=== PATIENT | female | born 1935 | race Caucasian/White ===

== ENCOUNTER 2022-03-04 11:43 | Emergency (ER) | payer MEDICARE ==
[2022-03-04 12:22] LABS: HEMOGLOBIN 12.6 gm/dl (12.3-15.3); RED BLOOD COUNT 4.15 M/UL (4.00-5.10); WHITE BLOOD COUNT 6.8 K/UL (4.5-11.0)
[2022-03-04 12:52] LABS: BUN/CREATININE RATIO 13 (0-10)
== END 2022-03-04 16:22 | disposition home or self-care (01) ==
LOC: ER1 11:43
PROVIDERS: Physician Assistant
DX: R53.83 Other fatigue (principal); K62.5 Hemorrhage of anus and rectum; I12.9 Hypertensive chronic kidney disease with stage 1 through stage 4 chronic kidney disease, or unspecified chronic kidney disease; N18.9 Chronic kidney disease, unspecified; Z85.3 Personal history of malignant neoplasm of breast
CPT/HCPCS: 70450; 71045; 80053; 81001; 82550; 82553; 82962; 83690; 84439; 84443; 84484; 85025; 87086; 93005; 96374; 96375; 99284; J0360; J3360

== ENCOUNTER 2022-06-28 16:11 | Emergency (ER) | payer MEDICARE, OTHER ==
[2022-06-28 18:24] LABS: HEMOGLOBIN 13.2 gm/dl (12.3-15.3); RED BLOOD COUNT 4.82 M/UL (4.00-5.10); WHITE BLOOD COUNT 5.2 K/UL (4.5-11.0)
[2022-06-30] MEDS ORDERED: PROTONIX 40 MG40 M1 PO (13:02)
== END 2022-06-28 22:29 | disposition home or self-care (01) ==
LOC: ER1 16:11
PROVIDERS: Family Medicine
DX: K21.00 Gastro-esophageal reflux disease with esophagitis, without bleeding (principal); I16.0 Hypertensive urgency; E78.5 Hyperlipidemia, unspecified; I10 Essential (primary) hypertension; Z87.891 Personal history of nicotine dependence
CPT/HCPCS: 80053; 81001; 82550; 82553; 83690; 84484; 85025; 93005; 96374; 96375; 99284; C9113; Q9967

== ENCOUNTER → 2022-07-10 | Day surgery (SDC) | payer MEDICARE, OTHER ==
[~2022-07-10] MED LIST: AMOXICILLIN500 M1 PO; ATENOLOL25 MG PO; CLARITHROMYCIN500 MG PO; HYDRALAZINE HCL10 MG PO; KLONOPIN TAB 00.5 MG PO; LISINOPRIL20 MG PO; PROTONIX 40 MG40 M1 PO
== END | disposition home or self-care (01) ==
LOC: OR 06:52
DX: K29.50 Unspecified chronic gastritis without bleeding (principal); K31.A15 Gastric intestinal metaplasia without dysplasia, involving multiple sites; I10 Essential (primary) hypertension; Z85.048 Personal history of other malignant neoplasm of rectum, rectosigmoid junction, and anus; Z85.3 Personal history of malignant neoplasm of breast; Z79.899 Other long term (current) drug therapy
CPT/HCPCS: J2704; J7040